=== PATIENT | male | born 1975 ===

== ENCOUNTER 2023-12-17 01:32 | Inpatient (IN) | payer SELFPAY ==
[2023-12-17 01:43] VITALS: BP 192/93; PULSE 118; RESP 17; TEMP 37.4; O2SAT 99
--- NOTE | 2023-12-17 01:49 | ED_ITS ---
HPI - Psych General Stated Complaint: SEC 12,MANIC,RESTRAINED W/PD ON BOARD PER EMS Time Seen by Provider: 12/17/23 01:36 Source: EMS Mode of arrival: EMS Limitations: other (Manic) History of Present Illness HPI Narrative: Patient comes to the emergency room via ambulance from his home. According to EMS and Police Department, earlier today, the police department/911 received several phone calls from the patient's building, seems that somebody was calling and hanging up. PD went to investigate the patient's building. They heard screaming coming from the patient's floor. When they entered the patient's mandi m, patient was manic, praying to the devil, hearing devil worshiping music . When PD tried to direct the patient to the ambulance, patient became aggressive. On arrival to the ED, patient quiet, calm, unwilling to speak Related Data Allergies Allergy/AdvReac Type Severity Reaction Status Date / Time Unable to Assess Allergy Unverified 12/17/23 01:44 Review of Systems Review of Systems: Yes Unobtainable due to mental condition [facility] Past Medical History Medical History (Updated 12/17/23 @ 02:04 by Lissette Mendez MD) History of psychiatric disorder Physical Exam Vital Signs: Vital Signs: Last Vital Signs Temp 99.4 F 12/17/23 01:43 Pulse 118 H 12/17/23 01:43 Resp 17 12/17/23 01:43 BP 192/93 H 12/17/23 01:43 Pulse Ox 99 12/17/23 01:43 O2 Del Method Room Air 12/17/23 01:43 Const: Other: Appearance: Alert. No acute distress, unwilling to talk Eyes: Pupils equal, round and reactive to light. ENT: Pharynx normal. Neck: Normal inspection. Neck supple. No lymph nodes noted. No crepitus CVS: Normal heart rate and rhythm. Pulses normal. Normal S1 and S2 Respiratory: No respiratory distress. Breath sounds normal. No Wheezing. No rales Abdomen: Soft and nontender. No rigidity. No distention. Skin: Skin warm and dry. Normal skin color. Normal skin turgor. Extremities: No lower extremity edema. No Lacerations. No Rash Neuro: Oriented X 3. No motor deficit. No sensory deficit. Moving all extremities. No slurred speech. CN 2 through 12 grossly intact Psych: calm, cooperative follows instructions, unwilling to talk Course Course Course Narrative: -all of patient's labs pending -patient was given p.o. diphenhydramine, Haldol and Ativan. -patient is on a Section 12 that was started in the community by police department -care team consult pending -physician observation started at 02:00 Medical Decision Making Differential Diagnosis Differential Diagnoses: The differential diagnosis associated with the presentation includes (Polysubstance abuse, alcohol abuse, manic, schizophrenia) Admission/Observation Consideration of admission/observation: Escalation of care including admission/observation considered (Patient is on a Section 12, labs and care team pending, patient will very likely need inpatient treatment) Discharge Plan Discharge Clinical Impression: Manic behavior, Delusional ideas Patient Disposition: Still a Patient
[2023-12-17 02:10] VITALS: BP 192/93; PULSE 118; RESP 18; TEMP 37.4; O2SAT 99; BMI 27.3
--- NOTE | 2023-12-17 03:08 | PC.NURSE ---
patient approached with duarte mccallum whilst presenting patient with cup for urine and client declined
[2023-12-17 03:19] LABS: Appearance Urine Clear; Color Urine Yellow; Glucose Urine UA Negative (Negative); Leukocyte Esterase Urine Negative (Negative); Nitrite Urine Negative (Negative); PH 5.5 (5.0-9.0); Specific Gravity - Urine 1.015 (1.005-1.025); Urine Blood Negative (Negative); Urine Ketones Negative (Negative); Urine Protein Negative (Neg-Trace)
--- NOTE | 2023-12-17 03:20 | PC.NURSE ---
prompted client as it seems hes responding to internal stimuli, may have to im client.
[2023-12-17 03:29] LABS: Amphetamine Screen Urine Not Detected (Not Detect); Barbiturates, Urine Not Detected (Not Detect); Benzodiazepines Screen Urine Not Detected (Not Detect); Cannabinoid Screen Urine POSITIVE (Not Detect); Cocaine Screen Urine Not Detected (Not Detect); Fentanyl, urine Not Detected (Not Detect); Opiate Screen Urine Not Detected (Not Detect); Phencyclidine Screen Urine Not Detected (Not Detect)
--- NOTE | 2023-12-17 06:06 | PC.NURSE ---
patient resting more consistently, frequent dry cough, periodic self dialogue
[2023-12-17 06:34] VITALS: RESP 16
--- NOTE | 2023-12-17 07:33 | PC.NURSE ---
Assumed care of patient at 0700, per director of audiology nursing, patient was very manic, refusing blood work, refusing vital signs, refusing medications and overall uncooperative. Per director of audiology nursing, patient was found in his apartment in the dark with a sword, performing satanic rituals. Patient appears to be sleeping at this time, respirations even and unlabored, will not wake patient up, will wait for patient to wake up on his own. Pt reported to director of audiology that he was fasting and therefore could not eat or drink. Patient has humalog in pharm hx but does not have diabetes listed under conditions. Formal assessment to take place when patient is awake pending patient cooperation. Pt still needs blood work then CARE eval. Patient is on Section 12
--- NOTE | 2023-12-17 09:06 | MHC.CARE ---
Samantha Caoham with [facility] co-response [phone] calls with info about this patient. Patient's step sister and step father called about 2 weeks to put the patient on alert. Arpan has been living with step father for four months. This time of year is difficult as it is the one year anniversary of patient's daughter's from asthma. Arpan has been noted to be self dialoguing, throwing things. This is a similar episode to when patient was living in [place] with a friend and was seen self dialoguing with a Halloween skeleton. Co-response has not seen the patient, as he will hide in the bathroom. Reportedly patient was with his cousin having dinner last week and throughout the meal, patient referred to his mother and brother winning the [employer]. Both of whom have been for ten years. He has no providers, no medication. Was admitted to [facility] in the past for 5-7 days. Sister is [place] [phone]
--- NOTE | 2023-12-17 09:14 | PC.NURSE ---
Patient ambulated to bathroom with steady gait, offers no complaints to this RN. Upon encounter, patient has pressured speech, stating I am fasting, you can take my breakfast tray . This RN offered water, patient refused. Patient asking when care team will see him, this Rn informed patient that blood work must be completed prior to seeing care team, patient refusing stating I have personal reasons, I don't want my blood taken . CARE team aware
--- NOTE | 2023-12-17 10:10 | PC.NURSE ---
Patient refusing blood work again, now sitting in room observed to be self dialoguing
--- NOTE | 2023-12-17 10:41 | PC.NURSE ---
Olinda from CARE team in to tell patient that he will be going inpatient. Joce, security present for staff safety. Interaction went well, although patient is self dialoguing in room at this time, occasionally increasing in volume.
[2023-12-17 14:00] VITALS: RESP 14
--- NOTE | 2023-12-17 14:03 | PM.PSYCN ---
History of Present Illness Date of Service: 12/17/2023 Chief Complaint: SEC 12,MANIC,RESTRAINED W/PD ON BOARD PER EMS Discussed with referring provider: Yes Sources of Information: patient interviewed, chart reviewed and crisis/core team assessment reviewed HPI Narrative: Mr. Davis is a 48 year-old male who was brought via EMS on sect 12a by police. Apparently, there was a call to 911 and police came and heard a noise in his apartment. He was agitated, religiously preoccupied. Pt seen in the ED. He appears guarded and irritable. He tells this check writer salesperson: you will all regret doing this to me, you think you are safe here with me, but you will go home and you will not be safe. Pt reports he has been asking for answers which he then explains high lynn are giving me answers, I don't question them, I just listen and follow. He is reluctant to disclose more information about his muslim believes, other than stating that he believes higher lynn like the illuminati probably want to harm someone. He denies SI/HI. He denies hearing voices when directly asked, but he is internally preoccupied. He reports people in the hospital have secondary motive for keeping him here and bringing him against his will which include that staff here including this check writer salesperson will be safer if he is present in the hospital. When asked if he believes he has special lynn, he states No!, I am not crazy, I am just [place]. When asked if he needed anything else, he states I want a lyle marco a but just make sure is not poisoned or jaqueline with. This check writer salesperson later brought him a can of lyle marco a that he open and pour in a cup and put on the side. Pt noted to have cardiac history including DE. His BP was elevated on admission SBP 190's. When asked about medications he used to take for medical reasons including hypertensive medications, he states I cure myself with meditation, I don't need them anymore! [facility] Medical History (Updated 12/17/23 @ 14:04 by Irina Menon) History of psychiatric disorder Diagnostics Vital Signs (24Hr): Vital Signs - 24 hr 12/17/23 01:43 12/17/23 02:10 12/17/23 06:34 Temperature 99.4 F 99.4 F Pulse Rate 118 H 118 H Respiratory Rate 17 18 16 Blood Pressure 192/93 H 192/93 H Pulse Oximetry 99 99 Oxygen Delivery Method Room Air Room Air BMI result Body Mass Index 27.3 Labs Labs: Laboratory Results - last 48 hr 12/17/23 03:12 Urine Color Yellow Urine Appearance Clear Urine pH 5.5 Ur Specific [place] 1.015 Urine Protein Negative Urine Glucose (UA) Negative Urine Ketones Negative Urine Blood Negative Urine Nitrite Negative Ur Leukocyte Esterase Negative Urine Opiates Screen Not Detected Urine Fentanyl Screen Not Detected Ur Barbiturates Screen Not Detected Ur Phencyclidine Scrn Not Detected Ur Amphetamines Screen Not Detected U Benzodiazepines Scrn Not Detected Urine Cocaine Screen Not Detected U Marijuana (THC) Screen POSITIVE H Mental Status Exam Mental Status Exam Narrative: Appearance: wearing hospital gown, fair hygiene, in NAD Behavior: guarded, irritable at times Speech: clear, normal rate/rhythm/volume, spontaneous TP: mostly linear TC: paranoid delusioons, muslim preoccupation Mood: fine Affect: guarded, paranoid SI: denies HI: denies VH/AH: internally preoccupied Delusions: paranoid delusions, muslim delusions. Insight/judgment: impaired x 2. Memory/cog: alert, oriented to place, not situation. 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 Davis is a 48 year-old who presents with complex system of paranoid and muslim delusions who was brought via EMS on sect 12a by police.His psychiatric hx is unclear. But it does appear that pt has decompensated in the past 4 years. His utox was positive for canabinoids but do suspect this is not a transient substance induced psychosis. It appears family had placed called to crisis due to increase paranoia. Unclear who called police to his building. Pt denies calling police. He is upset he was brought here to the hospital against his will and does report he believes is due to people in the hospital needing him to be safe. He reports hearing things from high lynn. He also makes reference to food here in the hospital being poisoned and request unopened can of lyle marco a. PLAN 1. continue bed search for safety containtment and stabilization. 2. try to obtain EKG given cardiac hx and administration of antipsychotic. Total time managing care of this patient today ____ minutes.
--- NOTE | 2023-12-17 14:12 | PC.NURSE ---
Pt continues self-dialoguing, occasionally yelling. This RN attempted to talk with patient regarding what is upsetting him. Pt began yelling I am a positive energy, yall are negative energy and I am surrounded by negative energy. I need to leave so I can regain my positive energy . This RN attempted to validate the patient's feeling but patient interrupted and yelled I need to talk to a superior . Olinda from CARE team aware
--- NOTE | 2023-12-17 15:40 | PC.NURSE ---
patient once again refused blood work and covid swab admissions aware
[2023-12-17 17:20] LABS: COVID-19 Test Negative (Negative); IDNOW Serial# 9DB6401D
--- NOTE | 2023-12-17 17:25 | PC.NURSE ---
Patient moved from 1 to 6 per patient request to have TV. patient calm and cooperative with this RN, refused blood work but willing to let this RN covid swab him. Pt provided with warm blanket. Continues to refuse food/drink
[2023-12-17] MEDS: OLANZapine 10 MG TABLET PO (22:38)
[2023-12-17 23:09] VITALS: RESP 18
[2023-12-18 00:15] VITALS: BP 192/93; PULSE 118; RESP 18; TEMP 36.7; O2SAT 98
--- NOTE | 2023-12-18 02:48 | PC.ADMIT ---
Patient is a 48yr old single male who presents to M[facility] from [facility] for acute/ unspecified psychosis. He was brought to [facility] by [email or web address] Police who were investigating hang up calls to the police department. When police arrived to location they heard a person screaming. When they entered the residence, they observed the patient self dialoguing sitting in a dark room with a sword. Patients sister reports patient has become increasingly psychotic, dysregulated, and bizarre. She reports previously witnessing patient speaking to a Halloween skeleton and attempting to feed it. Since admit patients mood has been labile. He has been delusional, disorganized, and yelling at staff. According to chart, speech was initially pressured, loud, and rapid. Upon admit patients appearance is neatly groomed. His skin check is intact. He is both calm and cooperative and his speech is normal. He is guarded and has very poor insight into situation. He states he does not know why he is here. He states he didn't know why the police broke down his door. He does not wish to answer personal questions and appears to get agitated when pressed for information. He states his only allergy is needles which will be an issue for labs and blood glucose checks. He denies HI/SI, AH,VH. Patient reports incarceration for a couple of years when he was in his 20's but nothing since then. 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 He states he doesn't smoke cigarettes or drink but smokes marijuana. Chart mentions history of diabetes. Patient reports it is diet controlled. He was hypertensive in the ED and remains hypertensive in the 190's systolic. H.R is also elevated at 118. He reports that he doesn't take medications and doesn't have a primary care. He states he just goes to Urgent care. Reported history of a heart attack. Patient has a history at [facility] in 2022, no other inpatient history known by this resume writer. Patient does not wish to sign any releases for anyone at this time. Patient verbalizes that he understands that staff cannot let anyone know he is here or give anyone any information. Patient was acclimated to unit and room. He ate, drank, and is currently sleeping. Will continue to monitor behaviors and sleep pattern and continue care with Behavioral Health team in the morning.
[2023-12-18 09:20] VITALS: BP 176/113; PULSE 93; RESP 17; O2SAT 98
--- NOTE | 2023-12-18 10:48 | P.HPPS_ITS ---
HPI Date of Service: 12/18/23 Chief Complaint: Manic Sources of Information: patient interviewed, chart reviewed and crisis/core team assessment reviewed HPI Subjective Notes: Palacio Warning and Conditional Voluntary Narrative: Patient is a 48 yo male with a history significant for schizophreniform disorder, myocardial infarction, diabetes mellitus type 2, not taking prescription medications. Patient is hypomanic but logical and linear and able to have a discussion. He says he does not know why police came. He says maybe he is loud in the apartment above but he does not mean to be and he has not hurting anyone. He says no one has ever told him that he is being too loud or asked him to quieter which he says he would gladly do. Patient lives in a 2nd floor apartment in a house owned by his sister's father. Patient denies any SI or HI; he denies any auditory hallucinations. He does not express any paranoid delusions and none could be solicited. Patient denies that he was praying to the devil or has anything to do with the devil. He acknowledges that he had a sword but that he has been collecting Swords for years to which his family seems to corroborate. Patient does not want any medication at all. [employer] reviewed his history of PA/CAD and medications including daily aspirin, anticoagulant, metoprolol, losartan, atorvastatin.... He says that about 6 months ago he did have chest pain and went to the hospital at which time they wanted to assure him to get bypass surgery; however patient said by that time he would already started feeling better and since he was feeling better did not want surgery at all. Patient says he continues to feel good so why she did take medicine. Patient agreed that he has hypertension and also agreed that that is a risk factor for a heart attack however he said he does not want any of the potential side effects from medication, feels good and chooses to not take meds. Patient gives verbal permission with witnessed present, to call any members of his family including his sisters, his brother and sister's father who is his landlord. Other collateral, ED note/crisis note reports that police were called to the house and heard screaming coming from his floor, that he was listen to satanic music, that he became aggressive when they tried to make him go to the ambulance but was able to calm down. To psychiatric consult he made reference to what sounds like possible references to grandiose thinking but it has not clear. When asked he denied AVH though he did appear at times to be internally preoccupied. Past Psychiatric History: Psychiatrically hospitalized about a year ago at [facility]; discharged without medication Medical Evaluation Reviewed: Yes adding hx of myocardial infarction, diabetes mellitus type 2 [facility] Medical History (Updated 12/19/23 @ 09:52 by Tommy Harper MD) Bipolar disorder Diabetes mellitus, type 2 Myocardial infarction History of psychiatric disorder Family History: Denies any knowledge of Social History: lives alone in 2nd floor apartment above family member has supportive sisters daughter from Asthma exacerbation Substance History: Denies Trauma History: deferred Diagnostics Vital Signs (24Hr): Vital Signs - 24 hr 12/17/23 14:00 12/17/23 23:09 12/18/23 00:15 Temperature 98.0 F Pulse Rate 118 H Respiratory Rate 14 18 18 Blood Pressure 192/93 H Pulse Oximetry 98 Oxygen Delivery Method Room Air 12/18/23 09:20 Temperature Pulse Rate 93 Respiratory Rate 17 Blood Pressure 176/113 H Pulse Oximetry 98 Oxygen Delivery Method Room Air BMI result Body Mass Index 27.3 Labs Labs: Laboratory Results - last 48 hr 12/17/23 12/17/23 03:12 17:01 Urine Color Yellow Urine Appearance Clear Urine pH 5.5 Ur Specific [place] 1.015 Urine Protein Negative Urine Glucose (UA) Negative Urine Ketones Negative Urine Blood Negative Urine Nitrite Negative Ur Leukocyte Esterase Negative Urine Opiates Screen Not Detected Urine Fentanyl Screen Not Detected Ur Barbiturates Screen Not Detected Ur Phencyclidine Scrn Not Detected Ur Amphetamines Screen Not Detected U Benzodiazepines Scrn Not Detected Urine Cocaine Screen Not Detected U Marijuana (THC) Screen POSITIVE H COVID-19 ([facility]) Negative COVID-19 Clin Com See Note Meds/Allergies Meds Home Medications ?Medication ?Instructions ?Recorded ?Confirmed ?Type No Known Home Meds 12/17/23 12/17/23 History Allergies Allergies Allergy/AdvReac Type Severity Reaction Status Date / Time No Known Allergies Allergy Verified 12/17/23 23:55 Mental Status Exam Mental Status Exam Narrative: Pt is alert and oriented; behavior is hypomanic, but cooperative, friendly and organized; patient is not in distress; dressed in hospital attire with adequate hygiene; mood is described as good and affect congruent; eye contact appropriate; Speech moderately pressured, but he's able to stop talking, listen and respond appropriately; a little loud; normal prosody; no psychomotor agitation present; thought process is organized and goal directed; Thought content is on incident; otherwise pertinent to relevant topics; no delusional content expressed though likely present; denies any SI/HI. Denies AH but some intermittent internal pre-occupation. Patients insight and judgment impaired. Assessment & Plan Assessment & Plan (1) Bipolar disorder: Status: Acute Code(s): F31.9 - Bipolar disorder, unspecified Plan Patient is a 48 yo male with a history significant for schizophreniform disorder, myocardial infarction, diabetes mellitus type 2, not taking prescription medications. Patient is hypomanic but logical and linear and able to have a discussion. He says he does not know why police came. He says maybe he is loud in the apartment above but he does not mean to be and he has not hurting anyone. He says no one has ever told him that he is being too loud or asked him to quieter which he says he would gladly do. Patient lives in a 2nd floor apartment in a house owned by his sister's father. Patient denies any SI or HI; he denies any auditory hallucinations. He does not express any paranoid delusions and none could be solicited. Patient denies that he was praying to the devil or has anything to do with the devil. He acknowledges that he had a sword but that he has been collecting Swords for years to which his family seems to corroborate. Patient does not want any medication at all. [employer] reviewed his history of PA/CAD and medications including daily aspirin, anticoagulant, metoprolol, losartan, atorvastatin.... He says that about 6 months ago he did have chest pain and went to the hospital at which time they wanted to assure him to get bypass surgery; however patient said by that time he would already started feeling better and since he was feeling better did not want surgery at all. Patient says he continues to feel good so why should he take medicine. Patient agreed that he has hypertension and also agreed that that is a risk factor for a heart attack however he said he does not want any of the potential side effects from medication, chooses to use meditation instead of medication, feels good and chooses to not take meds. Patient gives verbal permission with witnessed present, to call any members of his family including his sisters, his brother and sister's father who is his landlord. Other collateral, ED note/crisis note reports that police were called to the house and heard screaming coming from his floor, that he was listen to satanic music, that he became aggressive when they tried to make him go to the ambulance but was able to calm down. To psychiatric consult he made reference to what sounds like possible references to grandiose thinking but it has not clear. When asked he denied AVH though he did appear at times to be internally preoccupied. Formulation: Patient does present with hypomania with moderately pressured speech however he is logical and linear and explains himself quite well; says he sleeps about 7 hours a day though not all at once. He denies any SI or HI or AVH. There is no report about him being a danger to himself or others. Patient refuses medication for history of CAD/PA, hypertension, HLD however demonstrates capacity to do so and has gone the past 6 months off all medications without any cardiac events. Thus far, pt has remained in good behavioral and impulse control. Will need collateral. dx: Provisional dx bipolar disorder -pt appears manic; had past admission for what sounds like a similar event (and was discharged without any medications) and seems to be an episodic element to presentations... PLAN: CV Q 15 minute checks Zyprexa 10 mg q.h.s.; patient took it 1st night he was here; will continue Metoprolol succinate ER 50 mg daily; patient has hypertension so will order however patient is refusing Aspirin 81 mg daily; will order given history of CAD/PA however patient will likely continue to refuse Ticagrelor 90mg BID started on 06/18/23 with instructions don't stop for any reason for 12 months Atorvastatin; will hold since no lab work regarding lipids and patient is refusing pt refused Labs including Lipids, HBA1C Patient educated on: diagnosis, medication risk/benefits and medical condition Informed Consent: understands, does not understand and further education needed Reason for continued inpatient stay Substantial Risk for: rapid decompensation Statement Statement: I have reviewed the history and physical and performed a pertinent examination on my patient. No changes have occurred unless specified. If the History and Physical was not performed prior to admission, the Hospitalist's service will be consulted for completing the admission physical. Time Spent With Patient Time: Total time managing care of this patient today ____ minutes.
[2023-12-18 14:31] VITALS: BP 174/97; PULSE 97
--- NOTE | 2023-12-18 14:32 | PC.NURSE ---
Pt remains hypertensive in 170's/90-100's and refused the all meds ordered including Metoprolol reporting it's my right, my body, and my intuition to refuse medications! As TW spoke with him he stated me and anxiety don't do well. I just try to focus on myself and remove any distractions around me... He denies HATHAWAY or visual disturbances. Dr Harper informed of above
[2023-12-18 16:10] VITALS: BP 129/79; PULSE 70; RESP 16; TEMP 36.8; O2SAT 96
[2023-12-19 06:00] VITALS: BP 171/103; PULSE 115; RESP 17; TEMP 37.1; O2SAT 98
[2023-12-19 07:00] VITALS: BMI 25.0
--- NOTE | 2023-12-19 11:21 | P.PNPSI_ITS ---
Subjective Subjective Date of Service: 12/19/23 Reason For Visit: Manic Interim History: Met with patient; discussed with team slept 8 hours overnight and today is calm, polite, logical and organized, sitting calmly in day room watching TV. Speech is not pressured at all and he's remained in good behavioral and impulse control throughout time on unit and been appropriate with peers and staff. He asks for discharge felicia but would not himself sign 3 day notice. He says he has court tomorrow in [place] and does not want to miss court date. SW confirmed/verified pt does have court 12/20/23 at 8:30am in [place] refuses all medications, all referalls again reviewed risks of NH esepcially in light of being off meds, HTN discussed bipolar diagnosis and pt politely disagreed; he asked how caption writer could make a dx based on just meeting him but accepted that dx from mutiple sources, ie ED note, psych consult, sister.. pt said he will absouletly talk to landlord and establish quiet hours so as not to disturb him [employer] talked to sister Carolyne who confirms some bizarre behaviors but denies that he has never had any dangerousness, never been unsafe to self or others and has never been aggressive toward anyone. Mental Status Exam Mental Status Exam Narrative: Pt is alert and oriented; behavior is hypomanic, but cooperative, friendly and organized; patient is not in distress; dressed in hospital attire with adequate hygiene; mood is described as good and affect congruent; eye contact appropriate; Speech moderately pressured, but he's able to stop talking, listen and respond appropriately; a little loud; normal prosody; no psychomotor agitation present; thought process is organized and goal directed; Thought content is on incident; otherwise pertinent to relevant topics; no delusional content expressed though likely present; denies any SI/HI. Denies AH but some intermittent internal pre-occupation. Patients insight and judgment impaired but adequate. Diagnostics Vital Signs (24Hr): Vital Signs - 24 hr 12/18/23 14:31 12/18/23 16:10 12/19/23 06:00 Temperature 98.2 F 98.8 F Pulse Rate 97 70 115 H Respiratory Rate 16 17 Blood Pressure 174/97 H 129/79 171/103 H Pulse Oximetry 96 98 Oxygen Delivery Method Room Air Room Air BMI result Body Mass Index 25.0 Labs Labs: Laboratory Results - last 48 hr 12/17/23 17:01 COVID-19 ([facility]) Negative COVID-19 Clin Com See Note Medications Medications Current Medications Acetaminophen (Acetaminophen 325 Mg Tablet) 650 mg PO Q6H PRN PRN Reason: Headache/Pain Mild Scale (1-3) Al Hydroxide/Mg Hydroxide (Magnesium Hydrox/Alum Hydrox 30 Ml Oral.Susp) 30 ml PO Q6H PRN PRN Reason: Heartburn/Nausea Aspirin (Aspirin Enteric Coated 81 Mg Tablet.Dr) 81 mg PO DAILY [facility] Last Admin: 12/19/23 08:58 Dose: Not Given Hydroxyzine HCl (Hydroxyzine Hcl 25 Mg Tablet) 25 mg PO Q6H PRN PRN Reason: Anxiety Magnesium Hydroxide (Milk Of Magnesia 30 Ml Oral.Susp) 30 ml PO DAILY PRN PRN Reason: Constipation Metoprolol Succinate (Metoprolol Succinate Er 50 Mg Tab.Er.24h) 50 mg PO DAILY [facility]; Protocol Last Admin: 12/19/23 08:59 Dose: Not Given Nicotine (Nicotine 21 Mg Patch.Td24) 21 mg TRANSDERMA DAILY PRN PRN Reason: smoking cessation Olanzapine (Olanzapine Odt 10 Mg Tab.Rapdis) 10 mg TRANSLINGU Q6H PRN PRN Reason: agitation Olanzapine (Olanzapine 5 Mg Tablet) 5 mg PO TID PRN PRN Reason: agitation Olanzapine (Olanzapine 10 Mg Tablet) 10 mg PO BEDTIME [facility] Last Admin: 12/19/23 00:23 Dose: Not Given Ticagrelor (Ticagrelor 90 Mg Tablet) 90 mg PO BID [facility] Last Admin: 12/19/23 08:59 Dose: Not Given Trazodone HCl (Trazodone Hcl 50 Mg Tablet) 50 mg PO BEDTIME MRX1 PRN PRN Reason: Insomnia Allergies Allergies Allergy/AdvReac Type Severity Reaction Status Date / Time No Known Allergies Allergy Verified 12/17/23 23:55 Assessment & Plan Assessment & Plan (1) Bipolar disorder: Status: Acute Code(s): F31.9 - Bipolar disorder, unspecified Plan HPI: Patient is a 48 yo male with a history significant for schizophreniform disorder, myocardial infarction, diabetes mellitus type 2, not taking prescription medications. Patient is hypomanic but logical and linear and able to have a discussion. He says he does not know why police came. He says maybe he is loud in the apartment above but he does not mean to be and he has not hurting anyone. He says no one has ever told him that he is being too loud or asked him to quieter which he says he would gladly do. Patient lives in a 2nd floor apartment in a house owned by his sister's father. Patient denies any SI or HI; he denies any auditory hallucinations. He does not express any paranoid delusions and none could be solicited. Patient denies that he was praying to the devil or has anything to do with the devil. He acknowledges that he had a sword but that he has been collecting Swords for years to which his family seems to corroborate. Patient does not want any medication at all. [employer] reviewed his history of NH/CAD and medications including daily aspirin, anticoagulant, metoprolol, losartan, atorvastatin.... He says that about 6 months ago he did have chest pain and went to the hospital at which time they wanted to assure him to get bypass surgery; however patient said by that time he would already started feeling better and since he was feeling better did not want surgery at all. Patient says he continues to feel good so why should he take medicine. Patient agreed that he has hypertension and also agreed that that is a risk factor for a heart attack however he said he does not want any of the potential side effects from medication, chooses to use meditation instead of medication, feels good and chooses to not take meds. Patient gives verbal permission with witnessed present, to call any members of his family including his sisters, his brother and sister's father who is his landlord. Other collateral, ED note/crisis note reports that police were called to the house and heard screaming coming from his floor, that he was listen to satanic music, that he became aggressive when they tried to make him go to the ambulance but was able to calm down. To psychiatric consult he made reference to what sounds like possible references to grandiose thinking but it has not clear. When asked he denied AVH though he did appear at times to be internally preoccupied. Impression: Patient does present with hypomania with moderately pressured speech however he is logical and linear and explains himself quite well; says he sleeps about 7 hours a day though not all at once. He denies any SI or HI or AVH. There is no report about him being a danger to himself or others. Patient refuses medication for history of CAD/NH, hypertension, HLD however demonstrates capacity to do so and has gone the past 6 months off all medications without any cardiac events. Thus far, pt has remained in good behavioral and impulse control. 12/18 pt slept 8 hours overnight and today is calm, polite, logical and organized, sitting calmly in day room watching TV. Speech is not pressured at all and he's remained in good behavioral and impulse control throughout time on unit and been appropriate with peers and staff. He asks for discharge felicia but would not himself sign 3 day notice. He says he has court tomorrow in [place] and does not want to miss court date. SW confirmed/verified pt does have court 12/20/23 at 8:30am in [place] refuses all medications, all referalls again reviewed risks of NH esepcially in light of being off meds, HTN discussed bipolar diagnosis and pt politely disagreed; he asked how caption writer could make a dx based on just meeting him but accepted that dx from mutiple sources, ie ED note, psych consult, sister.. pt said he will absouletly talk to landlord and establish quiet hours so as not to disturb him [employer] talked to sister Carolyne who confirms some bizarre behaviors but denies that he has never had any dangerousness, never been unsafe to self or others and has never been aggressive toward anyone. Patient is asking for discharge immediately. Although has some hypomania, it has at a low level and he has remained in good behavioral and impulse control throughout his time on the unit. Based on presentation, history and collateral,caption writer cannot testify that pt is unable to care for himself in the community or that he is in imminent danger to self or others; discussed with team who agree that patient does not rise to the level of involuntary commitment. His request for discharge honored. dx: Provisional dx bipolar disorder -pt appears hypomanic; had past admission for what sounds like a similar event (and was discharged without any medications) and seems to be an episodic element to presentations... PLAN: CV Q 15 minute checks Zyprexa 10 mg q.h.s.; patient took it 1st night he was here; will continue Metoprolol succinate ER 50 mg daily; patient has hypertension so will order however patient is refusing Aspirin 81 mg daily; will order given history of CAD/NH however patient will likely continue to refuse Ticagrelor 90mg BID started on 06/18/23 with instructions don't stop for any reason for 12 months Atorvastatin; will hold since no lab work regarding lipids and patient is refusing pt refused Labs including Lipids, HBA1C Patient educated on: diagnosis, medication risk/benefits and medical condition Informed Consent: understands, does not understand and further education needed Reason for continued inpatient stay Substantial Risk for: stable for discharge Time Spent With Patient Time: Total time managing care of this patient today ____ minutes.
--- NOTE | 2023-12-19 11:31 | P.DS_ITS ---
DS: Providers Provider Date of Service: 12/19/23 Date of admission: 12/17/23 22:04 Date of discharge: 12/19/23 Primary care physician: Unknown Physician Attending physician on admission: Tommy Harper Consults: 12/17/23 02:01 Consult to Care Team Routine Comment: Reason for consultation: manic, delusional Attending physician on discharge: Tommy Harper DS: Diagnosis Discharge Diagnosis (1) Bipolar disorder: Status: Acute DS: Medications Discharge Medications Home Medications: Home Medications ?Medication ?Instructions ?Recorded ?Confirmed No Known Home Meds 12/17/23 12/17/23 Mental Status Exam Mental Status Exam Narrative: Pt is alert and oriented; behavior is hypomanic, but cooperative, friendly and organized; patient is not in distress; dressed in hospital attire with adequate hygiene; mood is described as good and affect congruent; eye contact appropriate; Speech moderately pressured, but he's able to stop talking, listen and respond appropriately; a little loud; normal prosody; no psychomotor agitation present; thought process is organized and goal directed; Thought content is on incident; otherwise pertinent to relevant topics; no delusional content expressed though likely present; denies any SI/HI. Denies AH but some intermittent internal pre-occupation. Patients insight and judgment impaired but adequate. Data Data Completed and Pending Completed studies during hospitalization [Text1]: 12/17/23 12/17/23 03:12 17:01 Urine Color Yellow Urine Appearance Clear Urine pH 5.5 Ur Specific [place] 1.015 Urine Protein Negative Urine Glucose (UA) Negative Urine Ketones Negative Urine Blood Negative Urine Nitrite Negative Ur Leukocyte Esterase Negative Urine Opiates Screen Not Detected Urine Fentanyl Screen Not Detected Ur Barbiturates Screen Not Detected Ur Phencyclidine Scrn Not Detected Ur Amphetamines Screen Not Detected U Benzodiazepines Scrn Not Detected Urine Cocaine Screen Not Detected U Marijuana (THC) Screen POSITIVE H COVID-19 ([facility]) Negative COVID-19 Clin Com See Note DS: Summary Hospital Course Hospital Course: HPI: Patient is a 48 yo male with a history significant for schizophreniform disorder, myocardial infarction, diabetes mellitus type 2, not taking prescription medications. Patient is hypomanic but logical and linear and able to have a discussion. He says he does not know why police came. He says maybe he is loud in the apartment above but he does not mean to be and he has not hurting anyone. He says no one has ever told him that he is being too loud or asked him to quieter which he says he would gladly do. Patient lives in a 2nd floor apartment in a house owned by his sister's father. Patient denies any SI or HI; he denies any auditory hallucinations. He does not express any paranoid delusions and none could be solicited. Patient denies that he was praying to the devil or has anything to do with the devil. He acknowledges that he had a sword but that he has been collecting Swords for years to which his family seems to corroborate. Patient does not want any medication at all. Training Personnel Supervisor reviewed his history of CA/CAD and medications including daily aspirin, anticoagulant, metoprolol, losartan, atorvastatin.... He says that about 6 months ago he did have chest pain and went to the hospital at which time they wanted to assure him to get bypass surgery; however patient said by that time he would already started feeling better and since he was feeling better did not want surgery at all. Patient says he continues to feel good so why should he take medicine. Patient agreed that he has hypertension and also agreed that that is a risk factor for a heart attack however he said he does not want any of the potential side effects from medication, chooses to use meditation instead of medication, feels good and chooses to not take meds. Patient gives verbal permission with witnessed present, to call any members of his family including his sisters, his brother and sister's father who is his landlord. Other collateral, ED note/crisis note reports that police were called to the house and heard screaming coming from his floor, that he was listen to satanic music, that he became aggressive when they tried to make him go to the ambulance but was able to calm down. To psychiatric consult he made reference to what sounds like possible references to grandiose thinking but it has not clear. When asked he denied AVH though he did appear at times to be internally preoccupied. Hospital course/Impression: Patient does present with hypomania with moderately pressured speech however he is logical and linear and explains himself quite well; says he sleeps about 7 hours a day though not all at once. He denies any SI or HI or AVH. There is no report about him being a danger to himself or others. Patient refuses medication for history of CAD/CA, hypertension, HLD however demonstrates capacity to do so and has gone the past 6 months off all medications without any cardiac events. Thus far, pt has remained in good behavioral and impulse control. Overnight pt slept 8 hours overnight and today is calm, polite, logical and organized, sitting calmly in day room watching TV. Speech is not pressured at all and he's remained in good behavioral and impulse control throughout time on unit and been appropriate with peers and staff. He asks for discharge felicia but would not himself sign 3 day notice. He says he has court tomorrow in [place] and does not want to miss court date. SW confirmed/verified pt does have court 12/20/23 at 8:30am in [place] refuses all medications, all referalls again reviewed risks of CA esepcially in light of being off meds, HTN discussed bipolar diagnosis and pt politely disagreed; he asked how magnetic tape typewriter operator could make a dx based on just meeting him but accepted that dx from mutiple sources, ie ED note, psych consult, sister.. pt said he will absouletly talk to landlord and establish quiet hours so as not to disturb him Training Personnel Supervisor talked to sister Carolyne who confirms some bizarre behaviors but denies that he has never had any dangerousness, never been unsafe to self or others and has never been aggressive toward anyone. Patient is asking for discharge immediately. Although has some hypomania, it has at a low level and he has remained in good behavioral and impulse control throughout his time on the unit. Based on presentation, history and collateral,magnetic tape typewriter operator cannot testify that pt is unable to care for himself in the community or that he is in imminent danger to self or others; discussed with team who agree that patient does not rise to the level of involuntary commitment. His request for discharge honored. Time spent discussing smoking cessation with patient: 3 to 10 minutes Status at Discharge Functional status at discharge: independent ambulation Overall status at discharge: patient is back to baseline Time Spent with Patient Time attestation: Total time managing care of this patient today 45____ minutes. Time spent: Greater than 30 minutes Discharge Plan Discharge Anticipated Discharge Date/Time: 12/19/23 11:50 Patient Disposition: Home, Self-Care Discharge Diagnosis: Bipolar I disorder, recurrent, moderate Referrals: Physician,Unknown J [Primary Care Provider] - 1 Week Discharge Medications: No Action No Known Home Meds Discharge Orders: Discharge Order (Routine); Ordered 12/19/23 Ordered By: Tommy Harper Diet: Regular diet Activity on Discharge: As tolerated Stand Alone Forms: Patient Portal Discharge page, Community Support Print Language: Belgian Care Plan Goals: Maintain mood and safe behaviors Consider taking medications Practice coping skills Consider working with outpatient providers Health Concerns: Mood stability and behaviors CAD with hx CA Hypertension Hyperlipidemia Plan of Treatment: Consider working with a PCP, psychiatric provider and other outpatient providers regarding above concerns Assessment: Risk assessment at time of discharge:? Patient was interviewed prior to discharge and found to be fully oriented and without any SI or HI. Patient has improved insight and judgment and wants to continue treatment. Patient is not in imminent risk of harm to self or others and has a safety plan that includes presenting to the closest ER or calling 911 if feeling unsafe.? Patient has been observed closely by nursing and unit staff throughout admission; patient has not engaged in any behaviors that suggest dangerousness to self or others and has demonstrated appropriate behaviors and impulse control Discharge Date/Time: 12/19/23 12:00
== END 2023-12-19 12:00 | disposition home or self-care (01) | DRG 885 ==
LOC: HO.ED 13:19 → HO.PM5 22:26
PROVIDERS: Admitting Provider Psychiatry & Neurology Psychiatry; Emergency Provider Emergency Medicine; Visit Provider Psychiatry & Neurology Psychiatry
DX: F31.9 Bipolar disorder, unspecified (principal); Z20.822 Contact with and (suspected) exposure to COVID-19; Z91.148 Patient's other noncompliance with medication regimen for other reason; Z79.899 Other long term (current) drug therapy
CPT/HCPCS: 80307; 81003; 87635; 99285; S9485

== ENCOUNTER → 2023-12-17 13:10 | Outpatient (BNV) | payer SELFPAY | PROVIDERS: Emergency Provider Emergency Medicine; Visit Provider Social Worker | DX: F31.0 Bipolar disorder, current episode hypomanic (principal) | CPT/HCPCS: 90792; 99239; 99285; 99499 ==